=== PATIENT | female | born 1970 | race Caucasian/White ===

== ENCOUNTER 2019-06-20 16:44 | Inpatient (IN) | payer MEDICAID ==
[~2019-06-20] VITALS: Ht 162.6 cm; Wt 55.0 kg
[2019-06-20 16:50] VITALS: Ht 162.6 cm; Wt 55.0 kg
--- NOTE | 2019-06-20 17:24 | NUR ---
MSE COMPLETED BY Josefina JACOME
--- NOTE | 2019-06-20 17:35 | NUR ---
PT HERE FOR C/O ONSET OF FEVER 3 DAYS AGO WITH BODY PAIN. PT STS SHE FEELS FINE AT WORK BUT WHEN SHE COMES HOME THE PAST 3 DAYS SHE FEELS DRAINED. PT HAS SLIGHT YELLOWISH TINT TO SKIN SEEN. PT AMBULATES STEADILY TO AND FROM RESTROOM.
[2019-06-20 17:58] LABS: PLATELET COUNT 265 x10^3mcL (130-400)
--- NOTE | 2019-06-20 17:59 | NUR ---
LIGHTS OFF FOR COMFORT.
--- NOTE | 2019-06-20 18:00 | NUR ---
LIGHTS OFF FOR COMFORT
[2019-06-20 18:03] LABS: UA SPECIFIC GRAVITY <=1.005 (1.005-1.035); microscopic required? YES; urine erythrocyte NEGATIVE (NEGATIVE)
[2019-06-20 18:10] LABS: CALCIUM 7.6 mg/dL (8.5-10.1); CHLORIDE SERUM 100 mmol/L (98-107); CREATININE SERUM 0.9 mg/dL (0.6-1.0); GFR1 > 60 mL/min; GLUCOSE SERUM 121 mg/dL (74-106); POTASSIUM SERUM 3.1 mmol/L (3.5-5.1); RED CELL DISTRIBUTION WIDTH 22.6 % (11.5-14.5); SODIUM SERUM 135 mmol/L (136-145)
[2019-06-20 18:14] LABS: ALKALINE PHOSPHATASE 70 U/L (46-116); ALT/SGPT 26 U/L (14-59); AST/SGOT 23 U/L (15-37); BILIRUBIN TOTAL 0.7 mg/dL (0.20-1.00); TOTAL PROTEIN, SERUM 7.3 g/dL (6.4-8.2)
[2019-06-20 18:15] LABS: ALBUMIN 3.3 g/dL (3.4-5.0)
--- NOTE | 2019-06-20 18:49 | NUR ---
AMD BACK FROM RESTROOM WITH STEADY GAIT
[2019-06-20 19:15] LABS: MONOCYTE 1 % (0-7); SEGMENTED NEUTROPHILS 86 % (37-75)
[2019-06-20 19:16] LABS: BAND NEUTROPHIL 3 % (0-10); BASOPHIL 0 % (0-2); PLATELET MORPHOLOGY LARGE PLATELET SEEN; rbc morphology (normal/abnorm) ABNORMAL (NORMAL)
--- NOTE | 2019-06-20 19:20 | NUR ---
ACCOMPANIED NATALIYA LEAL FOR RECTAL EXAM.
--- NOTE | 2019-06-20 19:25 | NUR ---
PT OFF OF UNIT VIA WHEELCHAIR TO US.
--- NOTE | 2019-06-20 21:24 | NUR ---
BLOOD TRANSFUSION STARTED.
--- NOTE | 2019-06-20 21:28 | NUR ---
REPORT GIVEN TO RONNI KONG.
--- NOTE | 2019-06-20 21:40 | NUR ---
SPOKE TO RESIDENT ABOUT LATEST BP. MENTIONED THAT ER IS WAITING FOR AN OK TO TRANSFER. PER RESIDENT, SHE IS GOING TO ASK THE RESIDENT THAT IS ASSIGNED TO THE PATIENT. PRIMARY NURSE JANIE MADE AWARE
--- NOTE | 2019-06-20 22:00 | NUR ---
PT AMBULATED TO RESTROOM WITH VISITOR AT BEDSIDE.
--- NOTE | 2019-06-20 22:10 | NUR ---
PT GIVEN 1000ML BOLUS PER RESIDENT FOR LOW BP.
--- NOTE | 2019-06-20 23:19 | NUR ---
SPOKE WITH RESIDENT REGARDING HIS PLANS OF IF PT CAN GO UP TO FLOOR OR NOT. RESIDENT TO COME DOWN TO REASSESS PT.
--- NOTE | 2019-06-20 23:45 | NUR ---
PT GIVEN 2ND BOLUS PER RESIDENT FOR CONTINUED LOW BP. PER RESIDENT PT IS TO GO UP TO FLOOR AFTER 2ND BOLUS.
--- NOTE | 2019-06-20 23:53 | NUR ---
PT RESTING IN BED ON LT SIDE WITH NO SIGNS OF DISTRESS AT THIS TIME. FRIEND AT BEDSIDE.
--- NOTE | 2019-06-21 00:45 | NUR ---
PT RESTING IN BED WITH EYES CLOSED AND BREATHS EVEN AND UNLABORED. NO SIGNS OF DISTRESS AT THIS TIME. VISITOR AT BEDSIDE.
--- NOTE | 2019-06-21 01:05 | NUR ---
PT UP TO RESTROOM.
--- NOTE | 2019-06-21 01:05 | NUR ---
2ND UNIT OF PRBC'S STARTED.
--- NOTE | 2019-06-21 01:44 | NUR ---
RECEIVED PT VIA [employer] FROM THE E/D, ACCOMPANIED BY FRIEND AND NURSE AND TRANSPORTER. PT IS ALERT AND ORIENTED X4, PT IS LETHARGIC BUT AROUSABLE WITH VERBAL STIMULUS. PT HAS GENERALIZED WEAKNESS BUT WAS ABLE TO AMBULATE FROM GUERNEY TO THE BED WITH SLOW STEADY GAIT, PT HAS NO COMPLAINT OF PAIN AT THIS TIME. PT STATES PAIN IS 0/10./ PT DENIES CHEST PAIN OR DISCOMFORT AT THIS TIME. SCD AT THE BEDSIDE, PT LUNGS ARE CTAB, BREATHING IS EQUAL AND UNLABORED. PT DOES HAVE NON PRODUCITVE COUGH THAT STARTED YESTERDAY AT ADMISSION TO THE EMERGENCY DEPARTMENT. PT IS ON ROOM AIR AT 100% SPO2, NO ACUTE RESPIRATORY DISTRESS NOTED. PT ABDOMENT IS SOFT/FLAT AND NON-TENDER. BOWEL SOUNDS PRESENT AND ACTIVE IN ALL 4 QUADRANTS. IV SITE TO THE RIGHT ANTECUBITAL 20 GAUGE, AND LEFT FOREARM 20 GAUGE, PT IS INFUSING BLOOD WHEN ARRIVED FROM THE ED, PER ED RN, THIS IS THE PT SECOND UNIT OF PRBC. NO SIGNS OR SYMPTOMS OF INFILTRATION NOTED AT BOTH IV SITES. PT VOIDS FREELY, DENIES DYSURIA, PER PT HAS STARTED MENSTRAL CYCLE TODAY. PT ORIENTED TO ROOM, BED CONTROLS, CALL LIGHT SYSTEM, SIDE RAILS UP X2, BED IN LOWEST POSITION. WILL CONTINUE TO MONITOR.
[2019-06-21 02:11] VITALS: BP 115/40
--- NOTE | 2019-06-21 03:06 | NUR ---
PT RUNNING A TEMPERATURE OF 101.5 TEMPORAL, PT GIVEN PRN TYLENOL FOR FEVER, WILL REASSESS TEMPERATURE.
[2019-06-21 03:45] VITALS: BP 98/39
--- NOTE | 2019-06-21 05:15 | NUR ---
PT HAS RESTED IN SHORT INTERVALS THROUGHOUT THE SHIFT, PT HAS BEEN CALM AND COOPERATIVE WITH CARE, NO ACUTE DISTRESS NOTED. PT HAS BEEN COMPLAINING OF CHILLS AND PT HAS HAD A FEVER OF 102.5, COOLING MEASURES IN PLACE, ICE PACKS PLACED ON PT NECK AND ARM PITS, TORADOL GIVEN ( SEE MAR) WILL DO TEMPERATURE RECHECK, PT HAS BEEN ALERT AND ORIENTED X4, FRIEND IS AT THE BEDSIDE, SAFETY AND COMFORT MEASURES MAINTAINED, BED IN LOWEST POSITION, CALL LIGHT WITHIN REACH. WILL ENDORSE CONTINUITY OF CARE TO THE ONCOMING RN.
[2019-06-21 06:09] LABS: PLATELET COUNT 222 x10^3mcL (130-400)
[2019-06-21 06:29] LABS: CALCIUM 6.7 mg/dL (8.5-10.1); CARBON DIOXIDE 19.7 mmol/L (21-32); CHLORIDE SERUM 109 mmol/L (98-107); CREATININE SERUM 0.7 mg/dL (0.6-1.0); GFR1 > 60 mL/min; GLUCOSE SERUM 116 mg/dL (74-106); MAGNESIUM 1.6 mg/dL (1.8-2.4); PHOSPHOROUS 1.5 mg/dL (2.5-4.9); POTASSIUM SERUM 3.3 mmol/L (3.5-5.1); SODIUM SERUM 142 mmol/L (136-145)
[2019-06-21 07:00] LABS: RED CELL DISTRIBUTION WIDTH 33.9 % (11.5-14.5)
--- NOTE | 2019-06-21 07:10 | NUR ---
RECEIVED BEDSIDE REPORT FROM PATIENT FINANCIAL REPRESENTATIVE NURSE AT THIS TIME. PATIENT RESTING COMFORTABLY IN BED. VISITOR AT BEDSIDE. NO APPARENT DISTRESS OR DISCOMFORT NOTED. BREATHING EVEN AND UNLABORED. NO RESPIRATORY DISTRESS OR DISCOMFORT NOTED. NO INDICATION OF CHEST PAIN/PRESSURE AT THIS TIME. IV PATENT AND INTACT. ALL QUESTIONS AND CONCERNS ADDRESSED. ALL NEEDS ATTENDED TO. WILL CONTINUE TO MONITOR
[2019-06-21 08:21] LABS: BAND NEUTROPHIL 0 % (0-10); BASOPHIL 0 % (0-2); MONOCYTE 3 % (0-7); SEGMENTED NEUTROPHILS 92 % (37-75)
[2019-06-21 08:22] LABS: rbc morphology (normal/abnorm) ABNORMAL (NORMAL)
[2019-06-21 08:24] LABS: PLATELET MORPHOLOGY PLATELETS NORMAL
[2019-06-21 09:04] VITALS: BP 100/47
--- NOTE | 2019-06-21 10:00 | NUR ---
ALL MEDICATIONS ADMINISTERED AT THIS TIME. PATIENT TOLERATED MEDICATIONS WELL. NO APPARENT ADVERSE EFFECTS AT THIS TIME. ALL NEEDS ATTENDED TO. WILL CONTINUE TO MONITOR.
--- NOTE | 2019-06-21 12:45 | NUR ---
PATIENT AMBULATING HALLWAYS AT THIS TIME. PATIENT TOLERATING ACTIVITY WELL. NO APPARENT DISTRESS OR DISCOMFORT NOTED. ALL NEEDS ATTENDED TO. WILL CONTINUE TO MONITOR
[2019-06-21 13:36] VITALS: BP 111/66
--- NOTE | 2019-06-21 14:00 | NUR ---
RECEIVED CALL FROM [employer]. PATIENT HAD EPISODES OF SINUS ARRHYTHMIA. SPOKE TO DR HUMMEL AT THIS TIME TO REPORT DIE CAST ENGINEER FINDINGS. PER DR HUMMEL, IF PATIENT HAS ANOTHER EPISODE TO LET HIM KNOWN AND HE WILL ORDER EKG. ASSESSED PATIENT, PER PATIENT SHE "FEELS FINE" AND DENIES CHEST PAIN/PRESSURE. ALL NEEDS ATTENDED TO. WILL CONTINUE TO MONITOR
--- NOTE | 2019-06-21 14:46 | NUR ---
PATIENT C/O "FEELING HOT". TEMPERATURE TAKEN AT THIS TIME. TEMP 101.6 ORALLY. TYLENOL PRN ADMINISTERED AT THIS TIME. PATIENT TOLERATED MEDICATION WELL. NO APPARENT ADVERSE EFFECTS NOTED. COOLING MEASURES IN PLACE. ALL NEEDS ATTENDED TO. WILL CONTINUE TO MONITOR
--- NOTE | 2019-06-21 15:02 | NUR ---
Discount pharmacy card and list to low cost medical clinics given to patient by Hong Plasencia.
--- NOTE | 2019-06-21 15:30 | NUR ---
Noted patient with IV at rt forearm infiltrated. Removed catheter and applied ice pack. IV infusing well at left AC. Attending nurse Brina made aware.
--- NOTE | 2019-06-21 15:46 | NUR ---
PATIENT TEMPERATURE REASSESSED AT THIS TIME S/P TYLENOL PRN. PATIENT TEMPERATURE 99.4 ORALLY. ALL NEEDS ATTENDED TO. WILL CONTINUE TO MONITOR
[2019-06-21 15:53] LABS: TOTAL IRON BINDING CAPACITY 338 ug/dL (250-450)
[2019-06-21 15:57] LABS: IRON 10 ug/dL (50-170)
[2019-06-21 16:04] LABS: RED BLOOD CELLS 4.25 M/mm3 (4.10-5.10)
[2019-06-21 17:28] LABS: AMPHETAMINE QUAL UR NONE DETECTED (See below)
[2019-06-21 17:30] VITALS: BP 110/49
--- NOTE | 2019-06-21 17:46 | NUR ---
PAGED DR JACKSON REGARDING PATIENT 3.3 K AND 1.5 PHOS AT THIS TIME. AWAITING ORDERS AT THIS TIME. WILL PROCEED ORDERED. ALL NEEDS ATTENDED TO. WILL CONTINUE TO MONITR
--- NOTE | 2019-06-21 18:12 | NUR ---
PATIENT POTASSIUM 3.3 AND MEDICATED WITH 20 MEQ OF POTASSIUM AT THIS TIME. PATIENT TOLERATED MEDICATION WELL. NO APPARENT ADVERSE EFFECTS NOTED. ALL NEEDS ATTENDED TO. WILL CONTINUE TO MONITOR
--- NOTE | 2019-06-21 19:18 | NUR ---
PATIENT RESTING COMFORTABLY IN BED AT THIS TIME. NO APPARENT DISTRESS OR DISCOMFORT NOTED. IV PATENT AND INTACT. ALL QUESTIONS AND CONCERNS ADDRESSED. ALL NEEDS ATTENDED TO. SAFETY PRECAUTIONS MAINTAINED. WILL ENDORSE ALL CARE TO RESIDENT ASSISTANT NURSE
--- NOTE | 2019-06-21 19:45 | NUR ---
RECEIVED REPORT FROM DAY SHIFT RN. PT RESTING WITH EYES CLOSED. AROUSABLE WITH VERBAL STIMULI. ORIENTED X4. NO SOB NOTED ON ROOM AIR. NO C/O PAIN AT THIS TIME. NO DISTRESS NOTED. IV TO LFA, NS INFUSING. SAFETY MEASURES IN PLACE. BED IN LOWEST POSITION. SIDE RAILS UP X2. INSTRUCTED PT TO USE THE CALL LIGHT FOR ASSISTANCE. CALL LIGHT WITHIN REACH.
[2019-06-21 19:51] LABS: PLATELET COUNT 259 x10^3mcL (130-400)
[2019-06-21 19:52] LABS: RED CELL DISTRIBUTION WIDTH 33.5 % (11.5-14.5)
[2019-06-21 20:11] LABS: MONOCYTE 2 % (0-7); SEGMENTED NEUTROPHILS 79 % (37-75)
[2019-06-21 20:12] LABS: BAND NEUTROPHIL 1 % (0-10); BASOPHIL 0 % (0-2); rbc morphology (normal/abnorm) ABNORMAL (NORMAL)
[2019-06-21 20:54] VITALS: BP 113/48
--- NOTE | 2019-06-21 21:16 | NUR ---
TYLENOL GIVEN FOR FEVER. COOLING MEASURES IN PLACE.
[2019-06-22 04:59] VITALS: BP 126/63
--- NOTE | 2019-06-22 06:53 | NUR ---
PT SLEPT AT LONG INTERVALS THROUGHOUT SHIFT. NO SOB NOTED. BREATHING EVEN AND UNLABORED. NO C/O PAIN. NO DISTRESS NOTED. PT ON MENSTRUAL CYCLE DAY 2. CHANGED PADS X5 THROUGHOUT SHIFT. SAFETY MEASURES MAINTAINED. ALL NEEDS ATTENDED TO. CALL LIGHT WITHIN ERACH. WILL ENDORSE CARE TO ONCOMING RN.
[2019-06-22 07:09] LABS: PLATELET COUNT 298 x10^3mcL (130-400)
[2019-06-22 07:22] LABS: RED CELL DISTRIBUTION WIDTH 33.8 % (11.5-14.5)
--- NOTE | 2019-06-22 07:30 | NUR ---
PT IS AAOX4. DENIES H/A AND DIZZINESS. RESP EVEN AND UNLABORED. LUNG SOUNDS CTA. ON R/A. TELE [address] READING NSR. ABDOMEN SOFT, NONTENDER, NONDISTENDED. BOWEL SOUNDS ACTIVE X4 QUADS. PT DENIES N/V/D. SKIN CDI. PERIPHERAL PULSES MODERATELY PALPABLE. NO EDEMA NOTED. PT HAS MENSTRAL BLEEDING THAT WILL BE MONITORED THROUGH OUT THE DAY. IVF RUNNING TO RW. SITE WNL. NO S/S OF INFECTION NOTEND. PT DENIES PAIN AND DISCOMFORT AT THIS TIME. BED IN LOWEST POSITION. CALL LIGHT WITHIN REACH.
[2019-06-22 07:31] LABS: CALCIUM 7.4 mg/dL (8.5-10.1); CARBON DIOXIDE 16.7 mmol/L (21-32); CHLORIDE SERUM 107 mmol/L (98-107); CREATININE SERUM 0.7 mg/dL (0.6-1.0); GFR1 > 60 mL/min; GLUCOSE SERUM 100 mg/dL (74-106); POTASSIUM SERUM 3.6 mmol/L (3.5-5.1); SODIUM SERUM 138 mmol/L (136-145)
[2019-06-22 09:39] VITALS: BP 109/56
[2019-06-22 09:44] LABS: BAND NEUTROPHIL 1 % (0-10); BASOPHIL 0 % (0-2); MONOCYTE 2 % (0-7); SEGMENTED NEUTROPHILS 93 % (37-75)
[2019-06-22 09:46] LABS: rbc morphology (normal/abnorm) ABNORMAL (NORMAL)
[2019-06-22 09:47] LABS: PLATELET MORPHOLOGY PLATELETS NORMAL; ovalocyte/elliptocyte 1+
--- NOTE | 2019-06-22 10:00 | NUR ---
PT IS SLEEPING IN BED BUT EASILY AROUSABLE TO VERBAL STIMULI. NO DISTRESS NOTED. RESP EVEN AND UNLABORED. NO DISTRESS NOTED.
--- NOTE | 2019-06-22 11:54 | NUR ---
Recommendation(s): 1. Continue current Regular diet order.
--- NOTE | 2019-06-22 11:54 | NUR ---
Initial Nutrition Assessment: (220T-B) GRACIELA PRIETO 48F Dx: Pyelonephtritis, Pelvic Mass, Anemia PMHx: None PSHx: None Labs: BUN 4.0 L, Alb 3.3 L, Ca 7.4 L, Phos 1.5 L, Mg 1.6 L Meds: Colace, Ferrous Sulfate, Levaquin, Zofran Diet: Regular PO intake since admission:~68% Ht: 64in Wt: 121# BMI: 20.8 Bed scale: 123.6# IBW: 120# %IBW: 101% UBW: 115# Age: 48 Food Allergies: NKFA Skin: Bennett: 20 Edema: none noted GI: Last BM: 06/20 RD Note (06/22): Nursing trigger received for admit w/ potential risk Dx. Per Dr Hu H&P, pt w/ Sepsis 2/2 UTI, less likely pyelonephritis. Visited pt bedside, resting comfortably at this time. Pt denies N/V/D/C or pain in abd or back areas. Pt states appetite is good, but does not eat all of food on tray r/t states too much food. Pt scheduled for D&C, hysterectomy, myomectomy, and pap smear in outpatient, per Dr Cruz progress note. Problem with N/V/D/C: No Problems with: Chewing: No Swallowing: No Current appetite: Good Recent wt change: No %wt change: No Vitamin/Supplement use: Biotin, VitC, Vit D Special diet at home: Regular Physical activity: N/A Nutrition education given (specify specific nutrition education and handout given): None given at this time. Food-drug interactions? Education given? None given at this time. Estimated Nutritional Needs Based on current body weight (55 kg) Energy: 2731-3692 kcal/day (30-35 kcal/kg for Sepsis) Protein: 55-66 g/day (1.2-1.5 g/kg for maintenance) Fluid: 1280-9435 mL/day (1 mL/kcal) or per MD Nutrition Diagnosis: Inadeqaute oral intake r/t fair PO AEB intake <75% Intervention 1. Continue current Regular diet order. Monitor/Evaluate Goal: PO intake at least 75% of estimated needs Monitor: PO intake, Labs, GI function F/U in 3-5 days as moderate risk 06/25-06/27
--- NOTE | 2019-06-22 12:49 | NUR ---
ROUTINE MEDICATION GIVEN AND TOLERATED WELL. LAB RESULTS REVIEWED WITH PT AND SIGNIFICANT OTHER. RESP EVEN AND UNLABORED. NO DISTRESS NOTED. PT DENIES PAIN AT THIS TIME. CALL LIGHT WITHIN REACH.
[2019-06-22 13:19] VITALS: BP 105/42
--- NOTE | 2019-06-22 13:28 | NUR ---
PT IS SITTING UP IN BED VISITING WITH SIGNIFICANT OTHER. RESP EVEN AND UNLABORED. NO DISTRESS NOTED. BATTERY CHANGED ON TELEMONITOR. CALL LIGHT WITHIN REACH.
[2019-06-22 16:39] VITALS: BP 140/64
--- NOTE | 2019-06-22 17:31 | NUR ---
TYLENOL 650MG PO GIVEN FOR SHARP, STABBING PAIN TO NECK AND LEFT SHOULDER PAIN 4/10. EXTRA FLUIDS ENCOURAGED. PT REPOSITIONED FOR COMFORT. CALL LIGHT WITHIN REACH.
--- NOTE | 2019-06-22 17:54 | NUR ---
RECEIVED TELEPHONE ORDER FROM DR. GLASER, PROVERA 10MG PO Q DAILY. ORDER NOTED AND CARRIED OUT. PT MADE AWARE AND EDUCATED ON THE USE AND S/E OF PROVERA. PT VERBALIZED UNDERSTANDING.
--- NOTE | 2019-06-22 18:52 | NUR ---
PT IS AAOX4. RESP EVEN AND UNLABORED. NO DISTRESS NOTED. PT DENIES PAIN AT THIS TIME. TELE [address] READING NSR. IV CATH TO RW INTACT, SITE WNL. WILL ENDORSE ALL CARE TO NOC RN.
--- NOTE | 2019-06-22 19:26 | NUR ---
TORADOL 15 MG IVP GIVEN FOR FOR SHARP, PIERCING L NECK PAIN AND L SHOULDER PAIN. PT REPOSITIONED FOR COMFORT. PT NOTED WITH 4 PAD CHANGES FOR MENSTRAL CYCLE TODAY. CALL LIGTH WITHIN REACH.
--- NOTE | 2019-06-22 19:30 | NUR ---
RECEIVED PT FROM DAY SHIFT RN. PT AAOX4. DENIES CAPUTO/DIZZINESS. BREATHING EVEN AND UNLABORED ON RA WITH NO SOB NOTED. TELE #7 SR HR 83. PT DENIES CHEST PAIN/PRESSURE. IV RFA PATENT. PT AMBULATORY WITH BRP. PER PT CAHNGED MENSTRAUL PADS X4 TODAY. NO SIGNS OF DISCOMFORT. CALL BUTTON WITHIN REACH. SAFETY PRECAUTIONS IN PLACE. FAMILY AT BEDSIDE. WILL CONITNUE TO MONITOR.
[2019-06-22 22:31] VITALS: BP 114/55
--- NOTE | 2019-06-23 00:38 | NUR ---
PT RESTING. BREATHING EVEN AND UNLABORED. NO SIGNS OF DISTRESS. CALL BUTTON WITHIN REACH. SAFETY PRECAUTIONS IN PLACE. WILL CONTINUE TO MONITOR.
--- NOTE | 2019-06-23 03:45 | NUR ---
PT AWAKE DENIES ANY PAIN. NO SIGNS OF DISTRESS. PER PT CHANGED FEMININE PAD X2. WILL CONTINUE TO MONITOR.
--- NOTE | 2019-06-23 05:16 | NUR ---
PT SLEPT MOST OF THE NIGHT WITH NO SIGNS OF DISTRESS. BREATHING EVEN AND UNLABORED ON RA WITH NO SOB NOTED. IV PATENT, SL. MEDICATED PER EMAR. PT DENIES ANY PAIN/DISCOMFORT. AMBULATORY WITH BRP. PER PT CHANGED FEMENINE PADS X3 TONIGHT. CALL BUTTON WITHIN REACH. SAFETY PRECAUTIONS IN PLACE. WILL CONTINUE TO MONITOR AND ENDORSE CARE TO DAY SHIFT RN.
[2019-06-23 05:58] VITALS: BP 131/54
[2019-06-23 06:58] LABS: PLATELET COUNT 373 x10^3mcL (130-400)
[2019-06-23 07:01] LABS: CALCIUM 7.5 mg/dL (8.5-10.1); CARBON DIOXIDE 22.1 mmol/L (21-32); CHLORIDE SERUM 108 mmol/L (98-107); CREATININE SERUM 0.7 mg/dL (0.6-1.0); GFR1 > 60 mL/min; GLUCOSE SERUM 101 mg/dL (74-106); POTASSIUM SERUM 4.4 mmol/L (3.5-5.1); SODIUM SERUM 141 mmol/L (136-145)
--- NOTE | 2019-06-23 07:30 | NUR ---
PT IS AAOX4. LUNG SOUNDS CTA, ON R/A. TELE [address] READING NSR. IV CATH TO RFA N/S LOCKED. SITE WNL. ABDOMEN SOFT, NONTENDER, NONDISTENDED. BOWEL SOUNDS ACTIVE. DENIES N/V/D. DENIES PAIN UPON URINATION. NO DISTRESS NOTED. CALL LIGHT WITHIN REACH. BED IN LOW POSITION.
--- NOTE | 2019-06-23 07:43 | NUR ---
PT RESTING. NO SIGNS OF DISTRESS NOTED. ENDORSED CARE TO DAY SHIFT RN, ALL QUESTIONS ADDRESSED.
[2019-06-23 08:08] VITALS: BP 112/60
[2019-06-23 08:54] LABS: RED CELL DISTRIBUTION WIDTH 35.4 % (11.5-14.5)
--- NOTE | 2019-06-23 09:07 | NUR ---
NEW ORDER MED PROVERA WAS GIVEN TO PT. THE PT WAS EDUCATED ON THE MEDICATION'S USE, S/E AND ADVERSE REACTIONS. PT VERBALIZED UNDERSTANDING. RESP EVEN AND UNLABORED. NO DISTRESS NOTED. PT DENIES PAIN. PT AMBULATED TO THE BATHROOM AND BACK INDEPENDENTLY WITH STEADY GAIT. CALL LIGHT WITHIN REACH.
--- NOTE | 2019-06-23 10:30 | NUR ---
PT IV CATH COVERED WITH OCCLUSIVE DRESSING N/S LOCKED FOR SHOWER. TELE BLENDING PLANT OPERATOR MADE AWARE PT IS OFF TELE DUE TO SHOWER.
--- NOTE | 2019-06-23 11:00 | NUR ---
TELE MONITOR PLACE ON PT S/P SHOWER. OFFICE PROFESSIONALS CONFIRMED READING.
[2019-06-23 12:45] VITALS: BP 113/62
--- NOTE | 2019-06-23 12:50 | NUR ---
DUE MED GIVEN AND TOLERATED WELL. RESP EVEN AND UNLABORED. NO DISTRESS NOTED. CALL LIGHT WITHIN REACH.
[2019-06-23 13:06] LABS: BAND NEUTROPHIL 8 % (0-10); METAMYELOCTE 1 % (0-2); MONOCYTE 2 % (0-7); MYELOCYTE 1 % (0-2)
[2019-06-23 13:07] LABS: SEGMENTED NEUTROPHILS 78 % (37-75); rbc morphology (normal/abnorm) ABNORMAL (NORMAL)
[2019-06-23 13:08] LABS: acanthocyte (spur cell) 1+; burr cell (echinocyte) 2+; ovalocyte/elliptocyte 1+; schistocyte (helmet cell) 1+
[2019-06-23 13:09] LABS: PLATELET MORPHOLOGY PLATELETS NORMAL
[2019-06-23] MEDS ORDERED: LEVOFLOXACIN500 M1 PO (14:52)
[2019-06-23] MEDS ORDERED: PROVERA10 MG PO (14:53)
[2019-06-23 15:15] VITALS: BP 113/62
--- NOTE | 2019-06-23 16:02 | NUR ---
PT IS DISCHARED TO HOME IN NO DISTRESS. DISCHARGE INSTRUCTIONS REVIEWED. ALL FORMS SIGNED. ALL QUESTIONS ANSWERED. RX GIVEN TO PT. VS:98.0F, HR 74, RR 20, B/P 113/62, 99% R/A. PT DENIES PAIN UPON DISCHARGE. TELE 7 TAKEN OFF PT AND RETURNED TO MOBILE THERAPIST. ALL PERSONAL BELONGING TAKEN WITH PT.
== END 2019-06-23 15:58 | disposition home or self-care (01) | DRG 720 ==
LOC: ED 16:44 → DU 19:44
PROVIDERS: Emergency Medicine; ADMIT General Practice
DX: A41.9 Sepsis, unspecified organism (principal); D62 Acute posthemorrhagic anemia; N39.0 Urinary tract infection, site not specified; E83.51 Hypocalcemia; E87.1 Hypo-osmolality and hyponatremia; N92.0 Excessive and frequent menstruation with regular cycle; E87.6 Hypokalemia; D25.0 Submucous leiomyoma of uterus; Z68.1 Body mass index [BMI] 19.9 or less, adult
CPT/HCPCS: G0378; J0696; J1200; J1885; J1956; J3490; J7030; J7050; J7060; P9016

== ENCOUNTER 2019-07-06 11:49 | Inpatient (IN) | payer MEDICAID ==
[~2019-07-06] VITALS: Ht 162.6 cm; Wt 51.0 kg
[~2019-07-06 11:49] MED LIST: LEVOFLOXACIN500 M1 PO; PROVERA10 MG PO
[2019-07-06 12:05] VITALS: Ht 162.6 cm; Wt 51.0 kg
--- NOTE | 2019-07-06 12:09 | NUR ---
PT RETURNED TO LOBBY, NAD NOTED.
--- NOTE | 2019-07-06 13:17 | NUR ---
PT TO RM
--- NOTE | 2019-07-06 13:31 | NUR ---
PT SEEN BY DR PERAZA.
--- NOTE | 2019-07-06 14:03 | NUR ---
PT AMB TO RESTROOM WITH STEADY GAIT
--- NOTE | 2019-07-06 14:03 | NUR ---
PT HERE WITH FOR C/O VAG BLEED SINCE JUN 23. PT STS SHE HAD CLOTS FOR THE FIRST 3 DAYS BUT NOW IT'S JUST BLEEDING. PT STS SHE USES 3-4 HEAVY PADS PER DAY SINCE THEN. PT REPORTS FEELING DIZZY OCCASIONALLY
--- NOTE | 2019-07-06 14:20 | NUR ---
LAYING IN BED, AWAKE, ALERT, DENIES HEAVY VAG BLEEDING AT THIS TIME, "IT'S LIGHT".
[2019-07-06 14:26] LABS: PLATELET COUNT 996 x10^3mcL (130-400)
[2019-07-06 14:51] LABS: BAND NEUTROPHIL 0 % (0-10); BASOPHIL 0 % (0-2); MONOCYTE 8 % (0-7); PLATELET MORPHOLOGY PLATELETS INCREASED; SEGMENTED NEUTROPHILS 70 % (37-75)
[2019-07-06 14:52] LABS: rbc morphology (normal/abnorm) ABNORMAL (NORMAL)
--- NOTE | 2019-07-06 15:30 | NUR ---
PT LYING ON GURNEY. CHANGED TO HOSP GOWN. AT BEDSIDE
[2019-07-06 15:37] LABS: CALCIUM 7.9 mg/dL (8.5-10.1); CARBON DIOXIDE 24.5 mmol/L (21-32); CHLORIDE SERUM 106 mmol/L (98-107); CREATININE SERUM 0.9 mg/dL (0.6-1.0); GFR1 > 60 mL/min; GLUCOSE SERUM 101 mg/dL (74-106); POTASSIUM SERUM 4.1 mmol/L (3.5-5.1); SODIUM SERUM 139 mmol/L (136-145)
[2019-07-06 15:42] LABS: ALKALINE PHOSPHATASE 81 U/L (46-116); ALT/SGPT 21 U/L (14-59); AST/SGOT 17 U/L (15-37); BILIRUBIN TOTAL 0.3 mg/dL (0.20-1.00); TOTAL PROTEIN, SERUM 7.3 g/dL (6.4-8.2)
[2019-07-06 15:46] LABS: ALBUMIN 3.3 g/dL (3.4-5.0)
[2019-07-06 15:59] LABS: RED BLOOD CELLS 4.18 M/mm3 (4.10-5.10)
[2019-07-06 16:12] LABS: T3 TOTAL 0.82 ng/mL
[2019-07-06 16:29] LABS: FREE T4 0.97 ng/dL (0.76-1.46); FREE THYROXINE INDEX 2.8 ug/dL (1.4-4.5); T4(THYROXINE) 7.9 ug/dL (4.7-13.3)
[2019-07-06 16:31] LABS: TOTAL IRON BINDING CAPACITY 423 ug/dL (250-450)
[2019-07-06 16:32] LABS: IRON 170 ug/dL (50-170)
[2019-07-06 17:08] VITALS: BP 91/44
[2019-07-06 17:11] VITALS: BP 113/41
--- NOTE | 2019-07-06 17:15 | NUR ---
RECEIVED PT FROM ED VIA HAZEL. ORIENTED PT TO ROOM AND SURROUNDINGS. IV NOTED TO RAC PATENT AND INTACT. TELE 13 PLACED ON PT READING NSR. INSTRUCTED PT ON THE USE OF CALL LIGHT FOR ASSISTANCE. ENDORSED PT TO PRIMARY NURSE ALEAH
--- NOTE | 2019-07-06 17:43 | NUR ---
RECEIVED PT FROM ER. PT WITH ORDER TO TRANSFUSE ONE UNIT PRBC. PT AWAKE, ALERT A/OX4. PT ON ROOM AIR WITH NO RESP DISTRESS NOTED. IV ACCESS RAC CDI, BLOOD SET TUBING SET UP FOR BLOOD ADMINISTRATION. PT DENIES ANY PAIN AT THIS TIME. SAFETY MEASURES IN PLACE, BED LOW AND LOCKED. CALL LIGHT WITHIN REACH.
--- NOTE | 2019-07-06 17:54 | NUR ---
BLOOD ADMINISTRATION STARTED. PT VSS. NO ACUTE DISTRESS NOTED.
--- NOTE | 2019-07-06 18:11 | NUR ---
VSS 98.7, HR 79 BP 91/44, RESP 20, O2 SAT 100% AFTER 15 MIN BLOOD ADMINISTRATION. LASIX HELD DUE TO LOW BP.
--- NOTE | 2019-07-06 18:28 | NUR ---
PT STABLE AT THIS TIME WITH NO ACUTE DISTRESS NOTED. WILL CONTINUE TO MONITOR AND ENDORSE CARE TO [employer] SALES CONSULTANT.
--- NOTE | 2019-07-06 19:10 | NUR ---
RECEIVED PT DROWSY BUT EASILY AROUSABLE. BLOOD TRANSFUSION ONGOING AT THIS TIME AND TOLERATING WELL. DENIES ITCHING, HIVES, OR SOB. DENIES CP OR PAIN. TELE #13 SR. BP 103/51. RPTS OF RED COLORED URINE. WILL CONTINUE TO MONITOR. ENCOURAGED TO CALL FOR ASSISTANCE.
[2019-07-06 19:30] VITALS: BP 103/51
--- NOTE | 2019-07-06 19:30 | NUR ---
BLOOD TRANSFUSION COMPLETED. TOLERATED WELL. NO ADVERSE REACTIONS NOTED. WILL CONTINUE TO MONITOR.
--- NOTE | 2019-07-06 21:35 | NUR ---
ROUTINE MEDS GIVEN & TOLERATED WELL. BREATHING EQUAL AND UNLABORED. NO RESP. DISTRESS. INSTRUCTED PT TO USE CALL LIGHT FOR ASSISTANCE TO THE RESTROOM OR USING THE BED RINALDI. NO ACUTE DISTRESS NOTED. WILL CONTINUE TO MONITOR.
--- NOTE | 2019-07-06 23:20 | NUR ---
PT IS ASLEEP, BUT EASILY AROUSABLE WHEN CALLED. BREATHING EQUAL AND UNLABORED. NO S/SX OF ACUTE DISTRESS. BED IN LOWEST POSITION. CALL LIGHT WITHIN REACH. WILL CONTINUE TO MONITOR.
--- NOTE | 2019-07-06 23:42 | NUR ---
CLARIFIED WITH DR. AUGUSTIN SAYED HOW MANY UNITS OF PRBC TO BE GIVEN FOR THIS PT.1 UNIT COMPLETED.WILL LOOK INTO THE ORDER.
--- NOTE | 2019-07-07 | NUR ---
DR. GLASER CALLED AND ASKED ABOUT PT'S CONDITION AND ORDER NPO AFTER MIDNIGHT.SCHEDULED D&C TODAY @ AROUND 9AM.TRANSFERED CALL TO ARTS ADMINISTRATOR OR MANAGER FOR OR SCHEDULING.
[2019-07-07 00:20] VITALS: BP 110/60
--- NOTE | 2019-07-07 00:20 | NUR ---
SECOND UNIT OF PBRC STARTED VERIFIED WITH ANOTHER NURSE. V/S: 99.7 F, HR 69, BP 110/60, RR 16, SAO2 98%. BLOOD NUMBER [id number]. PREMEDICATED WITH BENADRYL 25MG AND TYLENOL [address] HUMMEL AWARE OF TEMPERATURE 99.7. OKAY TO TRANSFUSE. WILL CONTINUE TO MONITOR.
[2019-07-07 00:35] VITALS: BP 117/57
--- NOTE | 2019-07-07 00:35 | NUR ---
RECHECKED VS AFTER 15 MINUTES OF BLOOD TRANSFUSION. TEMP 99.1, BP 117/57, HR 66, RR 16, SAO2 98%. NO ADVERSE REACTIONS. INFUSING WELL. WILL CONTINUE TO MONITOR.
--- NOTE | 2019-07-07 01:12 | NUR ---
PT STABLE AT THIS TIME WITH NO ACUTE DISTRESS. BREATHING IS EVEN AND UNLABORED. WILL CONTINUE TO MONITOR.
--- NOTE | 2019-07-07 02:28 | NUR ---
PT IS ASLEEP. IV INFUSING WELL. NO SIGNS OF ACUTE DISTRESS. WILL CONTINUE TO MONITOR.
--- NOTE | 2019-07-07 03:29 | NUR ---
SECOND UNIT OF PBRC TRANSFUSION COMPLETE. NO ADVERSE REACTIONS. VS 99.0 F, HR 68, BP 121/67, RR 18, SAO2 99%. BREATHING IS EVEN AND UNLABORED. NO ACUTE DISTRESS NOTED. PT DENIES PAIN AND SOB. CALL LIGHT WITHIN REACH. WILL CONTINUE TO MONITOR.
[2019-07-07 03:31] VITALS: BP 121/67
--- NOTE | 2019-07-07 04:56 | NUR ---
PT SLEPT IN INTERVALS THROUGHOUT THE NIGHT. PT IS CURRENTLY ASLEEP. NO REACTION TO BLOOD TRANSFUSION. RED COLORED URINE X1. NPO FOR PROCEDURE IN AM. ALL NEEDS MET. WILL CONTINUE TO MONITOR.
[2019-07-07 06:25] VITALS: BP 110/58
--- NOTE | 2019-07-07 06:50 | NUR ---
PT HAD 1 SMALL PAD FILLED WITH RED COLORED URINE.
[2019-07-07 07:11] LABS: CALCIUM 7.5 mg/dL (8.5-10.1); CARBON DIOXIDE 25.4 mmol/L (21-32); CHLORIDE SERUM 110 mmol/L (98-107); CREATININE SERUM 0.9 mg/dL (0.6-1.0); GFR1 > 60 mL/min; GLUCOSE SERUM 89 mg/dL (74-106); MAGNESIUM 1.9 mg/dL (1.8-2.4); PHOSPHOROUS 3.8 mg/dL (2.5-4.9); POTASSIUM SERUM 4.1 mmol/L (3.5-5.1); SODIUM SERUM 144 mmol/L (136-145)
--- NOTE | 2019-07-07 07:17 | NUR ---
ENDORSED CARE TO CHRISTINA KONG.
--- NOTE | 2019-07-07 07:59 | NUR ---
HANDOFF REPORT RECEIVED. PATIENT AWAKE AND NOT IN ANY DISTRESS. SCHEDULED FOR SURGERY TODAY HOWEVER YIFAN NEAL STATED IT IS CANCELLED OR TODAY. MD DEVLIN PAGED TO RESUME DIET.
[2019-07-07 08:01] LABS: BASOPHIL % 0.5 % (0-2)
[2019-07-07 08:04] VITALS: BP 125/68
--- NOTE | 2019-07-07 08:05 | NUR ---
MD DEVLIN RETURNED MY CALL AND MADE AWARE.
[2019-07-07 08:06] LABS: RED CELL DISTRIBUTION WIDTH 37.7 % (11.5-14.5)
[2019-07-07 08:08] LABS: PLATELET COUNT 902 x10^3mcL (130-400)
[2019-07-07 08:10] LABS: rbc morphology (normal/abnorm) ABNORMAL (NORMAL)
--- NOTE | 2019-07-07 09:59 | NUR ---
SEEN BY SURGEON TODAY. PATIENT IS FOR DISCHARGE.
[2019-07-07 12:28] VITALS: BP 125/68
--- NOTE | 2019-07-07 13:02 | NUR ---
DISCHARGE INSTRUCTIONS REVIEWED WITH PATIENT. PACKET GIVEN TO PATIENT. HEP LOCK REMOVED. ESCORTED OFF THE FLOOR BY RUBIO ALARCON.
== END 2019-07-07 13:05 | disposition home or self-care (01) | DRG 532 ==
LOC: ED 11:49 → DU 16:33
PROVIDERS: Emergency Medicine; Obstetrics & Gynecology; ADMIT Internal Medicine
PROC: 30233N1 Transfusion of Nonautologous Red Blood Cells into Peripheral Vein, Percutaneous Approach (ICD-10-PCS; principal; 2019-07-06)
DX: N93.8 Other specified abnormal uterine and vaginal bleeding (principal); D62 Acute posthemorrhagic anemia; D47.3 Essential (hemorrhagic) thrombocythemia; E83.51 Hypocalcemia
CPT/HCPCS: 84439; G0378; J7030; J7040; J7050; P9016; Q0092; Q0163